=== PATIENT | male | born 1960 | race Caucasian/White ===

== ENCOUNTER → 2022-01-28 | Outpatient (CLI) | payer OTHER ==
[2022-01-28 10:14] LABS: HEMATOCRIT 43.2 % (42.0-52.0); HEMOGLOBIN 13.7 g/dl (13.5-17.5); MEAN CORPUSCULAR HEMOGLOBIN 29.6 pg (27.0-33.0); MEAN CORPUSCULAR HGB CONC 31.7 g/dl (32.0-36.5); MEAN CORPUSCULAR VOLUME 93.3 fl (80.0-96.0); PLATELET COUNT, AUTOMATED 269 10^3/uL (150-450); RED BLOOD COUNT 4.63 10^6/uL (4.30-6.10); WHITE BLOOD COUNT 5.7 10^3/uL (4.0-10.0)
[2022-01-28 10:27] LABS: INR 0.94; PROTHROMBIN TIME 12.8 SECONDS (12.5-14.5)
[2022-01-28 10:53] LABS: ALBUMIN 3.6 G/DL (3.2-5.2); ALT/SGPT 34 U/L (7.0-40); BILIRUBIN,TOTAL 0.9 MG/DL (0.3-1.2); BLOOD UREA NITROGEN 20 MG/DL (9-23); CARBON DIOXIDE LEVEL 30 MMOL/L (20-31); CHLORIDE LEVEL 101 MMOL/L (98-107); CREATININE FOR GFR 1.08 MG/DL (0.70-1.30); GLOMERULAR FILTRATION RATE > 60.0 (>49); GLUCOSE, FASTING 100 MG/DL (74-106); POTASSIUM SERUM 4.6 MMOL/L (3.5-5.1); SODIUM LEVEL 137 MMOL/L (136-145)
[2022-01-28 10:54] LABS: ERYTHROCYTE SEDIMENTATION RATE 20 mm/hr (0-20)
== END ==
LOC: M LAB 09:22
PROVIDERS: ATTEND Orthopaedic Surgery
DX: M17.11 Unilateral primary osteoarthritis, right knee (principal)

== ENCOUNTER → 2023-02-10 | Outpatient (CLI) | payer OTHER | LOC: M CARPUL 07:54 | PROVIDERS: ATTEND Internal Medicine Pulmonary Disease | DX: R06.00 Dyspnea, unspecified (principal); I27.20 Pulmonary hypertension, unspecified; I08.2 Rheumatic disorders of both aortic and tricuspid valves ==

== ENCOUNTER 2023-05-18 18:43 | Emergency (ER) | payer OTHER, MEDICARE ==
[~2023-05-18] VITALS: Ht 182.9 cm; Wt 103.0 kg
[2023-05-18 18:44] VITALS: BP 160/90; TEMP 97.6; O2SAT 96
[2023-05-18] MEDS ORDERED: BACL10TA2 PO (18:54)
[2023-05-18] MEDS ORDERED: DULO1CAP4 PO (18:54)
[2023-05-18] MEDS ORDERED: GABA-1171 PO (18:54)
[2023-05-18] MEDS ORDERED: DICL50TAB PO (18:54)
[2023-05-18] MEDS ORDERED: BUPR75TA5 (18:54)
[2023-05-18] MEDS ORDERED: ATOR80TA59 PO (18:54)
[2023-05-18] MEDS ORDERED: ALBU8.5H INH (18:54)
[2023-05-18] MEDS ORDERED: AMLO1TAB24 PO (18:54)
[2023-05-18] MEDS ORDERED: PRAZ1CAP PO (18:54)
[2023-05-18] MEDS ORDERED: PANT40TA29 PO (18:54)
[2023-05-19] MEDS ORDERED: TRAM37.53 PO (13:46)
== END 2023-05-18 22:01 | disposition left against medical advice (07) ==
LOC: M ED 18:43
DX: Z53.21 Procedure and treatment not carried out due to patient leaving prior to being seen by health care provider (principal)

== ENCOUNTER 2023-05-19 08:21 | Emergency (ER) | payer MEDICARE, OTHER ==
[~2023-05-19] VITALS: Ht 182.9 cm; Wt 103.3 kg
[~2023-05-19 08:21] MED LIST: ALBU8.5H INH; AMLO1TAB24 PO; ATOR80TA59 PO; BACL10TA2 PO; BUPR75TA5; DICL50TAB PO; DULO1CAP4 PO; GABA-1171 PO; PANT40TA29 PO; PRAZ1CAP PO
[2023-05-19] MEDS: GABAPENTIN 300 MG CAP PO ONE (10:46)
[2023-05-19] MEDS ORDERED: MED REC IN PROGRESS XX SCH (10:50)
[2023-05-19 11:11] LABS: HEMATOCRIT 42.8 % (42.0-52.0); HEMOGLOBIN 14.6 g/dl (13.5-17.5); MEAN CORPUSCULAR HEMOGLOBIN 30.9 pg (27.0-33.0); MEAN CORPUSCULAR HGB CONC 34.1 g/dl (32.0-36.5); MEAN CORPUSCULAR VOLUME 90.5 fl (80.0-96.0); PLATELET COUNT, AUTOMATED 243 10^3/uL (150-450); RED BLOOD COUNT 4.73 10^6/uL (4.30-6.10); WHITE BLOOD COUNT 4.7 10^3/uL (4.0-10.0)
[2023-05-19 11:25] LABS: ERYTHROCYTE SEDIMENTATION RATE 17 mm/hr (0-20)
[2023-05-19 11:36] LABS: C REACTIVE PROTEIN QUANTITATIV < 0.40 MG/DL (<1.0)
[2023-05-19 11:38] LABS: BLOOD UREA NITROGEN 18 MG/DL (9-23); CARBON DIOXIDE LEVEL 32 MMOL/L (20-31); CHLORIDE LEVEL 102 MMOL/L (98-107); CREATININE FOR GFR 1.05 MG/DL (0.70-1.30); GLOMERULAR FILTRATION RATE > 60.0 (>49); GLUCOSE, FASTING 88 MG/DL (74-106); POTASSIUM SERUM 4.3 MMOL/L (3.5-5.1); SODIUM LEVEL 138 MMOL/L (136-145)
[2023-05-19] MEDS ORDERED: HOME MED LIST COMPLETE! XX SCH (12:15)
[2023-05-19] MEDS: ULTRACET TAB PO STA (12:21)
[2023-05-19 13:18] VITALS: BP 169/94; TEMP 97.5; O2SAT 96
[2023-05-19] MEDS ORDERED: TRAM37.53 PO (13:46)
== END 2023-05-19 14:14 | disposition home or self-care (01) ==
LOC: M ED 08:21
DX: M54.50 Low back pain, unspecified (principal); M25.552 Pain in left hip; M51.36 Other intervertebral disc degeneration, lumbar region; W19.XXXA Unspecified fall, initial encounter; J45.909 Unspecified asthma, uncomplicated; J44.9 Chronic obstructive pulmonary disease, unspecified; I10 Essential (primary) hypertension; Y92.009 Unspecified place in unspecified non-institutional (private) residence as the place of occurrence of the external cause; Y93.9 Activity, unspecified; Y99.9 Unspecified external cause status; Z88.6 Allergy status to analgesic agent; Z79.52 Long term (current) use of systemic steroids; Z79.891 Long term (current) use of opiate analgesic; Z79.02 Long term (current) use of antithrombotics/antiplatelets; Z79.899 Other long term (current) drug therapy
CPT/HCPCS: 72131; 73502; 80048; 85027; 85652; 86140; 96374; 99284; J1100

== ENCOUNTER → 2024-01-14 | Outpatient (CLI) | payer OTHER ==
[~2024-01-14] MED LIST changes: +TRAM1TAB42 PO
== END ==
LOC: M RAD 10:58
PROVIDERS: ATTEND Physician Assistant Medical
DX: M54.50 Low back pain, unspecified (principal); G89.29 Other chronic pain; Z98.1 Arthrodesis status; M41.50 Other secondary scoliosis, site unspecified; M47.896 Other spondylosis, lumbar region

== ENCOUNTER → 2024-02-24 | Outpatient (CLI) | payer MEDICARE, OTHER | LOC: M RAD 10:08 | PROVIDERS: ATTEND Internal Medicine Pulmonary Disease | DX: R91.8 Other nonspecific abnormal finding of lung field (principal) ==